=== PATIENT | female | born 1975 | race Caucasian/White ===

== ENCOUNTER → 2021-07-10 | Outpatient (CLI) | payer MEDICARE, MEDICAID ==
--- NOTE | 2021-07-10 15:34 | Diagnostic Imaging Report ---
INDICATION: Left hand pain. COMPARISON: None. FINDINGS: Three views of the left hand demonstrate no fracture or dislocation. The articular surfaces are age-appropriate. No bony erosion or foreign body is seen. IMPRESSION: No fracture or dislocation. Dictated by: Dictated on workstation # [id number]
== END ==
LOC: RAD 13:48
PROVIDERS: ATTEND Physician Assistant
DX: M79.642 Pain in left hand (principal); I82.409 Acute embolism and thrombosis of unspecified deep veins of unspecified lower extremity; D69.3 Immune thrombocytopenic purpura
CPT/HCPCS: 73130